=== PATIENT | female | born 1990 | race Caucasian/White ===

== ENCOUNTER → 2020-08-04 | Outpatient (REF) | payer OTHER ==
[2020-08-04 13:38] LABS: APPEARANCE, URINE CLEAR (CLEAR); BACTERIA, URINE AUTO 1+ (NEGATIVE); BILIRUBIN, URINE AUTO NEGATIVE (NEGATIVE); BLOOD, URINE BLOOD 1+ (NEGATIVE); COLOR, URINE AMBER (YELLOW); GLUCOSE, URINE (UA) AUTO NEGATIVE (NEGATIVE); KETONE, URINE AUTO NEGATIVE (NEGATIVE); LEUKOCYTE ESTERASE, URINE AUTO 2+ (NEGATIVE); MUCUS, URINE SMALL (NEGATIVE); NITRITE, URINE AUTO POSITIVE (NEGATIVE); PROTEIN, URINE AUTO NEGATIVE (NEGATIVE); RBC, URINE AUTO 1 /HPF (0-3); SPECIFIC GRAVITY URINE AUTO 1.002 (1.002-1.035); SQUAMOUS EPITHELIAL CELL UR AU 0 /HPF (0-6); WBC, URINE AUTO 10 /HPF (0-3)
== END ==
LOC: M LAB REF 12:33
PROVIDERS: ATTEND Physician Assistant
DX: N39.0 Urinary tract infection, site not specified (principal)

== ENCOUNTER 2020-10-01 17:25 | Emergency (ER) | payer OTHER, SELFPAY ==
[~2020-10-01] VITALS: Ht 165.1 cm; Wt 72.5 kg
[2020-10-01 18:47] LABS: BASO # 0.1 10^3/uL (0.0-0.2); BASO % 0.6 % (0.0-1.0); EOS # 0.2 10^3/uL (0.0-0.5); EOS % 1.9 % (0.0-3.0); HEMATOCRIT 37.9 % (36.0-47.0); HEMOGLOBIN 12.8 g/dl (12.0-15.5); LYMPH # 3.2 10^3/uL (1.5-5.0); LYMPH % 34.8 % (24.0-44.0); MEAN CORPUSCULAR HEMOGLOBIN 32.1 pg (27.0-33.0); MEAN CORPUSCULAR HGB CONC 33.8 g/dl (32.0-36.5); MONO # 0.8 10^3/uL (0.0-0.8); MONO % 8.1 % (2.0-8.0); NEUTROPHILS % 54.3 % (36.0-66.0); PLATELET COUNT, AUTOMATED 243 10^3/uL (150-450); RED BLOOD COUNT 3.99 10^6/uL (4.00-5.40); WHITE BLOOD COUNT 9.3 10^3/uL (4.0-10.0)
[2020-10-01 19:26] LABS: BLOOD UREA NITROGEN 11 MG/DL (7-18); CALCIUM LEVEL 8.7 MG/DL (8.5-10.1); CARBON DIOXIDE LEVEL 30 MEQ/L (21-32); CHLORIDE LEVEL 106 MEQ/L (98-107); CREATININE FOR GFR 0.78 MG/DL (0.55-1.30); GLOMERULAR FILTRATION RATE > 60.0 (>60); GLUCOSE, FASTING 73 MG/DL (70-100); HCG, SERUM QUANTITATIVE 2142 MIU/ML; POTASSIUM SERUM 4.1 MEQ/L (3.5-5.1); SODIUM LEVEL 140 MEQ/L (136-145)
[2020-10-01 19:55] VITALS: BP 117/75
== END 2020-10-01 19:57 | disposition home or self-care (01) ==
LOC: M ED 17:25
DX: Z32.01 Encounter for pregnancy test, result positive (principal); F17.210 Nicotine dependence, cigarettes, uncomplicated

== ENCOUNTER → 2020-10-01 | Outpatient (CLI) | payer SELFPAY ==
--- NOTE | 2020-10-01 15:45 | REP ---
INDICATION: (+) PREG CRAMPING BLEEDING ? ECTOPIC COMPARISON: None. TECHNIQUE: Transabdominal and transvaginal 1st trimester obstetrical ultrasound with color Doppler evaluation. FINDINGS: Anteverted uterus measures 7.7 x 3.5 x 4.7 cm. The endometrial complex measures 9 mm thickness. No intrauterine identified. The left ovary is normal in appearance and vascularity measuring 2.2 x 1.2 x 1.1 cm (RI 0.53). Small amount of free fluid is identified within the pelvis and posterior cul-de-sac. The right ovary is not definitively identified. However, there is a complex primarily cystic structure in the right adnexa measuring 4.0 x 4.3 x 3.2 cm which is nonspecific in appearance but demonstrating some element of surrounding vascularity. This may represent normal complex ovary. However, ectopic cannot definitively be excluded. IMPRESSION: 1. No intrauterine identified. Normal left ovary/adnexa. 2. Complex right adnexal structure as described above. Differential diagnosis includes complex right ovary with corpus luteum cyst as well as ectopic cannot be excluded. Correlation with physical examination and serial HCG levels recommended along with close clinical observation period <Electronically signed by Reyes Baron > 10/01/20 [id number]
== END ==
LOC: M RAD 14:56
PROVIDERS: ATTEND Physician Assistant Medical
DX: Z32.01 Encounter for pregnancy test, result positive (principal); Z3A.00 Weeks of gestation of pregnancy not specified

== ENCOUNTER → 2020-10-04 | Outpatient (CLI) | payer OTHER | LOC: M LAB 09:54 | PROVIDERS: ATTEND Physician Assistant Medical | DX: O02.81 Inappropriate change in quantitative human chorionic gonadotropin (hCG) in early pregnancy (principal) ==

== ENCOUNTER 2020-10-05 06:49 | Emergency (ER) | payer OTHER ==
[~2020-10-05] VITALS: Ht 165.1 cm; Wt 72.3 kg
[2020-10-05 07:51] LABS: BASO # 0.1 10^3/uL (0.0-0.2); BASO % 0.7 % (0.0-1.0); EOS # 0.2 10^3/uL (0.0-0.5); HEMATOCRIT 37.9 % (36.0-47.0); HEMOGLOBIN 12.9 g/dl (12.0-15.5); LYMPH # 1.6 10^3/uL (1.5-5.0); LYMPH % 21.1 % (24.0-44.0); MEAN CORPUSCULAR HEMOGLOBIN 32.3 pg (27.0-33.0); MONO # 0.6 10^3/uL (0.0-0.8); MONO % 7.9 % (2.0-8.0); NEUTROPHILS # 5.2 10^3/uL (1.5-8.5); NEUTROPHILS % 67.9 % (36.0-66.0); PLATELET COUNT, AUTOMATED 222 10^3/uL (150-450); RED BLOOD COUNT 3.99 10^6/uL (4.00-5.40); WHITE BLOOD COUNT 7.6 10^3/uL (4.0-10.0)
--- NOTE | 2020-10-05 08:45 | REP ---
INDICATION: concern for ectopic R side. Five weeks 5 days by last menstrual period. 4151 beta HCG level. COMPARISON: Comparison obstetric sonography 01 October 2020.. TECHNIQUE: Transabdominal and transvaginal scanning are included. Doppler interrogation is included. FINDINGS: Uterine dimensions are 7.7 x 4.3 x 5.2 cm. Uterus is anteverted. Endometrial thickness is 1.3 cm. No intrauterine gestational sac is seen. No yolk sac or embryonic pole is visualized. Right ovarian dimensions are 4.3 x 3.1 x 4.3 cm. There is a right adnexal cyst measuring 3.1 x 3.2 x 2.6 cm. This is again seen to contain some internal echoes and septations. It is centrally unchanged. Left ovarian dimensions are 1.7 x 0.9 x 1.5 cm. Left ovary has a normal appearance. Doppler flow is present in both ovaries. Resistive indices by Doppler in the ovaries are 0.55 on the right and 0.61 on the left. No free fluid is seen. IMPRESSION: Small, 3.2 cm, septated right ovarian cyst again seen unchanged from study done 4 days earlier. There is no evidence of intrauterine gestation. No free fluid. Normal left ovary. Nonspecific findings. Continued follow-up suggested. <Electronically signed by Shaun Rose > 10/05/20 [id number]
[2020-10-05 09:38] VITALS: BP 119/68
== END 2020-10-05 09:44 | disposition home or self-care (01) ==
LOC: M ED 06:49
DX: R89.1 Abnormal level of hormones in specimens from other organs, systems and tissues (principal); R10.2 Pelvic and perineal pain
CPT/HCPCS: 36415; 76801; 76817; 80047; 84702; 85025; 86850; 86900; 86901; 99284; U0002

== ENCOUNTER → 2020-10-07 | Outpatient (CLI) | payer OTHER ==
[2020-10-07 13:05] LABS: HEMATOCRIT 38.6 % (36.0-47.0); HEMOGLOBIN 13.2 g/dl (12.0-15.5); MEAN CORPUSCULAR HEMOGLOBIN 32.4 pg (27.0-33.0); MEAN CORPUSCULAR HGB CONC 34.2 g/dl (32.0-36.5); MEAN CORPUSCULAR VOLUME 94.8 fl (80.0-96.0); PLATELET COUNT, AUTOMATED 224 10^3/uL (150-450); RED BLOOD COUNT 4.07 10^6/uL (4.00-5.40)
[2020-10-07 13:33] LABS: ALBUMIN 4.2 GM/DL (3.2-5.2); ALT/SGPT 17 U/L (12-78); BILIRUBIN,TOTAL 0.5 MG/DL (0.2-1.0); BLOOD UREA NITROGEN 11 MG/DL (7-18); CALCIUM LEVEL 9.1 MG/DL (8.5-10.1); CARBON DIOXIDE LEVEL 28 MEQ/L (21-32); CHLORIDE LEVEL 106 MEQ/L (98-107); CREATININE FOR GFR 0.58 MG/DL (0.55-1.30); GLOMERULAR FILTRATION RATE > 60.0 (>60); GLUCOSE, FASTING 84 MG/DL (70-100); SODIUM LEVEL 139 MEQ/L (136-145); TOTAL PROTEIN 7.1 GM/DL (6.4-8.2)
== END ==
LOC: M LAB 12:06
PROVIDERS: ATTEND Obstetrics & Gynecology
DX: Z67.91 Unspecified blood type, Rh negative (principal); Z3A.01 Less than 8 weeks gestation of pregnancy; O00.90 Unspecified ectopic pregnancy without intrauterine pregnancy
CPT/HCPCS: 36415; 80053; 84702; 85027; 86850; 86900; 86901; J2790

== ENCOUNTER → 2020-10-07 | Outpatient (CLI) | payer OTHER | LOC: M LAB 07:58 | PROVIDERS: ATTEND Physician Assistant Medical | DX: O02.81 Inappropriate change in quantitative human chorionic gonadotropin (hCG) in early pregnancy (principal) ==

== ENCOUNTER → 2022-12-29 | Outpatient (CLI) | payer OTHER | LOC: M RAD 10:30 | PROVIDERS: ATTEND Obstetrics & Gynecology | DX: Z87.59 Personal history of other complications of pregnancy, childbirth and the puerperium (principal) ==